=== PATIENT | male | born 1970 | race Caucasian/White ===

== ENCOUNTER 2021-09-04 16:49 | Emergency (ER) | payer MEDICAID ==
[~2021-09-04] VITALS: Ht 177.8 cm; Wt 78.0 kg
[2021-09-04 19:37] LABS: BASOPHILS % 0.4 % (0.0-2.0); EOSINOPHILS % 4.1 % (0.0-5.0); HEMATOCRIT. 42.8 % (42.0-52.0); HEMOGLOBIN. 14.4 g/dL (14.0-18.0); LYMPHOCYTES % 22.2 % (20.0-50.0); MEAN CORPUSCULAR HEMOGLOBIN 27.2 pg (28.0-32.0); MEAN PLATELET VOLUME 7.5 fl (7.4-10.4); MONOCYTES % 5.9 % (2.0-8.0); NEUTROPHILS % 67.4 % (40.0-76.0); PLATELET 277 x1000/uL (130-400); RED BLOOD CELL COUNT 5.28 mill/uL (4.7-6.1); RED CELL DISTRIBUTION WIDTH 17.4 % (11.6-14.6)
[2021-09-04 19:43] LABS: CHLORIDE 105 mEq/L (98-107)
[2021-09-04 19:49] LABS: ETHANOL BLOOD < 10 mg/dL
[2021-09-04 19:50] LABS: CLARITY URINE CLEAR (CLEAR); COLOR URINE YELLOW (YELLOW); KETONES URINE NEGATIVE (NEGATIVE); LEUKOCYTE ESTERASE URINE NEGATIVE (NEGATIVE); NITRITE URINE NEGATIVE (NEGATIVE); OCCULT BLOOD URINE NEGATIVE (NEGATIVE); PROTEIN URINE NEGATIVE (NEGATIVE); SPECIFIC GRAVITY URINE 1.016 (1.005-1.030); UROBILINOGEN URINE 0.2 E.U./dL (0.2-1.0)
[2021-09-04 20:13] LABS: *AMPHETAMINES SCREEN URINE NEGATIVE (NEGATIVE); *BARBITURATES SCREEN URINE NEGATIVE (NEGATIVE); *BENZODIAZEPINES SCREEN URINE NEGATIVE (NEGATIVE)
[2021-09-04 20:14] LABS: *COCAINE SCREEN URINE NEGATIVE (NEGATIVE); CANNABINOID URINE SCREEN NEGATIVE (NEGATIVE); METHADONE URINE SCREEN NEGATIVE (NEGATIVE); OPIATES URINE SCREEN NEGATIVE (NEGATIVE); PHENCYCLIDINE URINE SCREEN NEGATIVE (NEGATIVE)
[2021-09-05] MEDS ORDERED: QUETIAPINE FUMARATE 50MG TABLET PO SCH (09:00)
[2021-09-05] MEDS ORDERED: HALOPERIDOL 5MG TABLET PO SCH (09:00)
[2021-09-05] MEDS ORDERED: FLUOXETINE HCL 20MG CAPSULE PO SCH (11:27)
[2021-09-05] MEDS ORDERED: LITHIUM CARBONATE 150 MG CAPSULE PO SCH (13:00)
[2021-09-05] MEDS ORDERED: GABAPENTIN 300MG CAPSULE PO SCH (14:00)
[2021-09-05 15:23] VITALS: BP 131/91
[2021-09-05] MEDS ORDERED: OXCARBAZEPINE 300MG TABLET PO SCH (21:00)
[2021-09-05] MEDS ORDERED: BENZTROPINE MESYLATE 0.5MG TABLET PO SCH (21:00)
== END 2021-09-05 15:44 ==
LOC: ER 16:49
DX: R45.851 Suicidal ideations (principal); R44.0 Auditory hallucinations; R44.1 Visual hallucinations; F31.9 Bipolar disorder, unspecified; Z20.822 Contact with and (suspected) exposure to COVID-19
CPT/HCPCS: 36415; 80053; 80305; 80307; 80320; 80329; 81003; 85025; 99285; C9803; U0003; U0005; G0480